=== PATIENT | female | born 1940 | race Caucasian/White ===

== ENCOUNTER 2022-12-03 05:55 | Emergency (ER) | payer MEDICARE, OTHER ==
[2022-12-03 07:45] LABS: ANION GAP 5.6 meq/L (7-15); CHLORIDE,CL 101 mmol/L (98-107); SODIUM,NA 136 mmol/L (136-145)
[2022-12-03 07:46] LABS: ESTIMATED GFR 63 mL/min (>=60)
[2022-12-03] MEDS: Ondansetron 4 MG/2 ML SDV IVPUSH ONE (08:06)
[2022-12-03] MEDS: Morphine 2 MG/ML SYRINGE IVPUSH ONE (08:06)
[2022-12-03] MEDS: Sodium Chloride 0.9% 10 ML Syringe FLUSH PRN (08:12)
[2022-12-03] MEDS: Sodium Chloride 0.9% 500 ML IV SCH (08:26)
[2022-12-03 08:39] VITALS: BP 141/69; PULSE 72
== END 2022-12-03 08:36 ==
LOC: LL.ED 05:55
DX: S72.001A Fracture of unspecified part of neck of right femur, initial encounter for closed fracture (principal); E78.00 Pure hypercholesterolemia, unspecified; I10 Essential (primary) hypertension; Z79.899 Other long term (current) drug therapy; Z79.82 Long term (current) use of aspirin; W19.XXXA Unspecified fall, initial encounter
CPT/HCPCS: 36415; 51702; 80053; 81001; 85025; 96374; 96375; 99284; 99285-25; J2270; J2405; J3490; J7040